=== PATIENT | female | born 1960 | race Caucasian/White ===

== ENCOUNTER 2019-03-12 09:54 | Day surgery (SDC) | payer SELFPAY ==
[~2019-03-12 09:54] MED LIST: FLUOXETINE20 MG PO; TRAZODONE HCL50 MG PO
[2019-03-12 12:39] VITALS: BP 124/69
== END 2019-03-12 12:50 | disposition home or self-care (01) | DRG 395 ==
LOC: ENDO 09:54 → ORM 10:30 → ENDO 11:00
PROVIDERS: ATTEND Surgery
PROC: 0DBK8ZX Excision of Ascending Colon, Via Natural or Artificial Opening Endoscopic, Diagnostic (ICD-10-PCS; principal; 2019-03-12)
PROC: 0DBL8ZX Excision of Transverse Colon, Via Natural or Artificial Opening Endoscopic, Diagnostic (ICD-10-PCS; 2019-03-12)
PROC: 0DBM8ZX Excision of Descending Colon, Via Natural or Artificial Opening Endoscopic, Diagnostic (ICD-10-PCS; 2019-03-12)
DX: D12.2 Benign neoplasm of ascending colon (principal); D12.4 Benign neoplasm of descending colon; D12.3 Benign neoplasm of transverse colon; Z80.0 Family history of malignant neoplasm of digestive organs